=== PATIENT | male | born 1955 | race Caucasian/White ===

== ENCOUNTER 2023-05-14 13:34 | Outpatient (OUT) | payer MEDICARE, MEDICAID, SELFPAY ==
--- NOTE | 2023-05-14 | XR_ITS ---
The [address] [address] Patient Name: NABIL WRIGHT MRN: [id number] date: 1955 Sex: M Assigned Patient Location: [facility] Current Patient Location: Accession/Order Number: [id number] Exam Date: 05/14/2023 13:45 Report Date: 05/15/2023 01:41 At the request of: FOREST PAUL Procedure: XR foot LT min 3V PROCEDURE: XR foot LT min 3V HISTORY: LEFT FOOT PAIN , chronic COMPARISON: None. FINDINGS: BONES:No fracture, acute abnormality, or significant arthropathy. SOFT TISSUES:No visible soft tissue swelling. EFFUSION:None visible. OTHER: Negative. XR/XR foot LT min 3V IMPRESSION: 1. No acute abnormality or significant degenerative changes. 2. Minimal degenerative enthesopathic spurring of the calcaneus. Electronically authenticated by: EVARISTO JENKINS Date: 05/15/2023 01:41
== END 2023-05-14 13:35 | disposition home or self-care (01) ==
LOC: RAD 13:36
PROVIDERS: Visit Provider Podiatrist Foot & Ankle Surgery
DX: M79.672 Pain in left foot (principal)
CPT/HCPCS: 73630